=== PATIENT | female | born 1990 | race Caucasian/White ===

== ENCOUNTER 2017-08-10 14:43 | Emergency (ER) | payer OTHER, SELFPAY ==
[2017-08-10 14:48] VITALS: BP 107/42; PULSE 81; RESP 18; TEMP 36.2; O2SAT 94; BMI 38.6
--- NOTE | 2017-08-10 14:57 | XR_ITS ---
XR ankle RT min 3V HISTORY: ITS.REASON: pain right ankle ORDERING PHYSICIAN: Ever Sifuentes MD PATIENT AGE: 26 years COMPARISON: None FINDINGS: No fracture or dislocation. No lytic or blastic change. There is normal mineralization.. The joint spaces are well-preserved. No significant degenerative/arthritic changes. No erosive changes evident. IMPRESSION: Negative ankle, no acute finding
--- NOTE | 2017-08-10 15:48 | HMH.EDGENADL ---
ED Disposition Clinical Impression: Right ankle sprain Qualifiers: Encounter type: initial encounter Involved ligament of ankle: other ligament Qualified Code(s): S93.491A - Sprain of other ligament of right ankle, initial encounter Disposition: Home, Self-Care Condition on Discharge: Good Instructions: DI for Ankle Sprain Additional Instructions: Please keep right ankle wrapped with an Paco bandage, elevated, apply ice pack locally, alternate Motrin with Tylenol for pain control. If not better follow-up with PCP in 4-5 days. Referrals: Butch Gonzalez [Primary Care Provider] - Time of Disposition: 15:51 - Critical Care Critical Care Time: No Attestation: On 08/10/17, the high probability of a clinically significant, sudden or life threatening deterioration of the following system(s) required my full and direct attention, intervention and personal management. The time I documented below is in addition to time spent performing reported procedures but includes the following listed in this critical care notation. Medical Decision Making - Medical Records Medical records reviewed: Yes: I reviewed the patient's medical records. - Darrick Inquiry Pt receiving controlled substance: No Vital Signs: 08/10/17 14:48 Temperature 97.2 F L Temperature Source Temporal Artery Scan Pulse Rate [Right Brachial] 81 Respiratory Rate 18 Blood Pressure [Right Arm] 107/42 Blood Pressure Mean [Right Arm] 63 Blood Pressure Source [Right Arm] Automatic Cuff Blood Pressure Position [Right Arm] Sitting 02 Sat by Pulse Oximetry 94 L Oxygen Delivery Method Room Air Orders (Tests/Meds): ED MEDICATIONS Discontinued Medications Generic Name Dose Route Start Last Admin Trade Name Freq PRN Reason Stop Dose Admin Ibuprofen 600 mg 08/10/17 15:52 08/10/17 15:58 Motrin 600mg Tablet PO 08/10/17 15:53 600 mg ONCE ONE Administration - Radiology Data #1 Image(s): Ankle (rigth) Image Reviewed: Yes I reviewed the patient's radiology results, Yes I reviewed the patient's radiology image, Yes I have reviewed radiologist's interpretation Preliminary Findings: Normal/NAD - Reevaluation(s) Time: 15:45 Reevaluation #1: Upon evaluation patient appears medically stable, in no acute distress. Advise patient of results obtained, need to keep limb elevated, ice, wrap with elastic bandage. General Adult HPI - General Chief complaint: PAIN Stated complaint: Ao [id number] Right foot pain Time Seen by Provider: 08/10/17 15:01 Mode of Arrival: Family Vehicle Source of Information: Patient Limitations: No Limitations Description of Symptoms (Recalled from ER Triage Doc. by RN): c/o right ankle pain, Twisted while cleaning at approx 30 minutes to go - History of Present Illness complaint: rigth ankle pain Onset (ago): hour(s) (1/2) Location: right, lower extremity Radiation: non-radiation Severity: moderate Severity scale (1-10): 4 Quality: aching Consistency: intermittent Relieving factors: rest Exacerbating factors: movement Associated symptoms: denies other symptoms Treatments prior to arrival: none - Related Data Allergies Allergy/AdvReac Type Severity Reaction Status Date / Time Penicillins [PENICILLINS] Allergy Severe I-HIVES Verified 08/10/17 14:55 [facility] History I have reviewed the patient's past medical history: Yes Medical History: Denies:: Cancer, Diabetes Mellitus Type 1, Diabetes Mellitus Type 2, MRSA Amputation: No Fractures: No - Social History Smoking Status: Current every day smoker Tobacco Type: cigarettes Alcohol Intake: never - Psychiatric History Expresses thoughts of harming self/others: None Suicide Plan Description: No Plan ROS Obtained: Yes All systems reviewed & no additional complaints, Yes Systems reviewed as appropriate & no additional complaints - Musculoskeletal Musculoskeletal: Reports system reviewed and no additional complaints, except as docu, Reports as pe
[2017-08-10 16:08] VITALS: BP 122/64; PULSE 79; RESP 16; TEMP 36.9; O2SAT 99
== END 2017-08-10 16:11 | disposition home or self-care (01) ==
PROVIDERS: Emergency Provider Emergency Medicine; Family Provider Family Medicine; PCP Internal Medicine Cardiovascular Disease
DX: S93.491A Sprain of other ligament of right ankle, initial encounter (principal); F17.210 Nicotine dependence, cigarettes, uncomplicated; Z88.0 Allergy status to penicillin; X50.1XXA Overexertion from prolonged static or awkward postures, initial encounter
CPT/HCPCS: 73610; 99283

== ENCOUNTER 2019-11-09 20:37 | Emergency (ER) | payer OTHER, SELFPAY ==
[2019-11-09 20:53] VITALS: BP 147/79; PULSE 105; RESP 20; TEMP 36.9; O2SAT 98; BMI 40.7
[2019-11-09 20:53] LABS: UTC Strep Screen (Rapid) Positive (Negative)
--- NOTE | 2019-11-09 20:56 | HMH.EDUTC ---
[facility] [place] Disposition Clinical Impression: Strep throat Disposition: Home, Self-Care Condition on Discharge: Good Instructions: Strep Throat, DI for Strep Throat Additional Instructions: *Monitor Temp, Over the counter Motrin or Tylenol as directed/as needed Tylenol every 4 hours and Motrin every 6 hours (as long as your family doctor has told you that you can take it) for fever or pain. and straight to ER if unable to lower temp less than 101.0 after medication given *Warm salt water gargles may help to soothe the throat *Throat Lozenges *Warm fluids like tea with honey may help to soothe the throat *Sleep elevated *Humidifier/Vaporizer Continue taking Azithromycin as prescribed *If you did not take Penicillin shot or was unable to, start taking antibiotic immediately and make sure that you take it for the FULL length of time although you should start to feel better in 24-48 hours *change toothbrush and toothpaste 24-48 hours after starting to take antibiotics so you do not reinfect yourself Monitor Temp. Tylenol and/or Ibuprofen as needed. ER if fever is no less than 101 despite alternating Tylenol and Ibuprofen * Encourage fluids, water, Gatorade, powerade, pedialyte if infant/toddler/or child *Cold fluids, popsicles and ice cream may feel good on his throat Follow up IMMEDIATELY for new or worsening symptoms or no Noticeable improvement over the next 48-72 hours. 911 for difficulty breathing or swallowing Referrals: Butch Montano [Primary Care Provider] - As needed Time of Disposition: 21:20 Medical Decision Making - Darrick Inquiry Pt receiving controlled substance: No Darrick was queried for this patient: No Vital Signs: 11/09/19 20:53 11/09/19 21:12 Temperature 98.4 F 98.4 F Temperature Source Oral Pulse Rate 105 H Pulse Rate [Left Brachial] 105 H Respiratory Rate 20 20 Blood Pressure 147/79 H Blood Pressure [Left Arm] 147/79 H Blood Pressure Mean [Left Arm] 101 Blood Pressure Source [Left Arm] Automatic Cuff Blood Pressure Position [Left Arm] Sitting 02 Sat by Pulse Oximetry 98 Oxygen Delivery Method Room Air - Lab Data Lab results reviewed: Yes: I reviewed the patient's lab results. Lab Results 11/09/19 20:45: Strep Scn Rapid [facility] Positive A Orders (Tests/Meds): ED MEDICATIONS Discontinued Medications Generic Name Dose Route Start Last Admin Trade Name Lalita PRN Reason Stop Dose Admin Methylprednisolone Sodium Succinate 125 mg 11/09/19 20:58 11/09/19 21:10 Solu-Medrol 125mg/2ml Vial IM 11/09/19 20:59 125 mg ONCE ONE Administration [facility] [place] HPI - General Stated complaint: SORE THROAT Time Seen by Provider: 11/09/19 20:56 Mode of Arrival: Ambulatory Source of Information: Patient Limitations: No Limitations Description of Symptoms (Recalled from Triage Doc. by RN): PATIENT C/O SORE THROAT. CURRENTLY ON Z-PACK HEENT Symptoms (Recalled from RN notes): Yes Resp Symptoms (Recalled from RN notes): No Skin Symptoms (Recalled from RN notes): No MS Symptoms (Recalled from RN notes): No Functional Status (Recalled from RN notes): WNL - History of Present Illness Provider Complaint: Patient states that she seen her PCP through telehealth and was dx with strep throat and was prescribed zpack yesterday states that she has been taking it and her throat isnt feeling any better States that tonight it feels like it is swollen worse so she came in to get checked - Related Data Home Medications Medication Instructions Recorded Confirmed Albuterol Sulfate [Ventolin HFA 2 puffs IH DAILY 02/07/18 02/11/19 Inhaler] Budesonide [Pulmicort Flexhaler] 2 puffs IH DAILY 02/07/18 02/11/19 Cetirizine HCl 10 mg PO DAILY 02/07/18 02/11/19 Ibuprofen [Ibuprofen 800mg 800 mg PO TID 02/07/18 02/11/19 Tablet] Omeprazole [Omeprazole 40mg 40 mg PO DAILY 02/07/18 02/11/19 Capsule] Dicyclomine HCl [Bentyl 10mg 10 mg PO QID 04/01/18 02/11/19 capsule] Jean
[2019-11-09 21:12] VITALS: BP 147/79; PULSE 105; RESP 20; TEMP 36.9; O2SAT 98
== END 2019-11-09 21:24 | disposition home or self-care (01) ==
PROVIDERS: Emergency Provider Nurse Practitioner; PCP Family Medicine
DX: J02.0 Streptococcal pharyngitis (principal); F17.210 Nicotine dependence, cigarettes, uncomplicated; Z88.0 Allergy status to penicillin
CPT/HCPCS: 87880; 96372; 99202

== ENCOUNTER 2021-11-03 18:23 | Emergency (ER) | payer OTHER, SELFPAY ==
[2021-11-03 18:27] VITALS: BP 145/91; PULSE 125; RESP 18; TEMP 36.7; O2SAT 95; BMI 40.5
--- NOTE | 2021-11-03 18:42 | PC.NURSE ---
Pt states that she has had a tubal.
--- NOTE | 2021-11-03 18:43 | CT_ITS ---
PROCEDURE INFORMATION: Exam: CT Head Without Contrast Exam date and time: 11/03/2021 6:50 PM Age: 31 years old Clinical indication: Pain; Additional info: Tree branch fell on head TECHNIQUE: Imaging protocol: Computed tomography of the head without contrast. Radiation optimization: All CT scans at this facility use at least one of these dose optimization techniques: automated exposure control; mA and/or kV adjustment per patient size (includes targeted exams where dose is matched to clinical indication); or iterative reconstruction. COMPARISON: CT CERVICAL SPINE WO CON 11/03/2021 6:48 PM FINDINGS: Brain: Normal. Cerebral ventricles: No ventriculomegaly. Paranasal sinuses: Minimal ethmoid sinus disease. Mastoid air cells: Normal as visualized. Bones/joints: Normal. Soft tissues: Unremarkable. IMPRESSION: No acute intracranial abnormality.
--- NOTE | 2021-11-03 18:43 | CT_ITS ---
PROCEDURE INFORMATION: Exam: CT Cervical Spine Without Contrast Exam date and time: 11/03/2021 6:48 PM Age: 31 years old Clinical indication: Neck pain; Additional info: Tree branch fell on head TECHNIQUE: Imaging protocol: Computed tomography of the cervical spine without contrast. Radiation optimization: All CT scans at this facility use at least one of these dose optimization techniques: automated exposure control; mA and/or kV adjustment per patient size (includes targeted exams where dose is matched to clinical indication); or iterative reconstruction. COMPARISON: No relevant prior studies available. FINDINGS: Bones/joints: No acute fracture. Normal alignment. Discs/Spinal canal/Neural foramina: No significant disc protrusion. No severe spinal canal stenosis. No significant neural foraminal narrowing. Lungs: Lung apices are normal. Soft tissues: Normal. IMPRESSION: No acute findings.
--- NOTE | 2021-11-03 18:43 | CT_ITS ---
PROCEDURE INFORMATION: Exam: CT Thoracic Spine Without Contrast Exam date and time: 11/03/2021 6:53 PM Age: 31 years old Clinical indication: Pain in thoracic spine; Additional info: Tree branch fell on head TECHNIQUE: Imaging protocol: Computed tomography of the thoracic spine without contrast. Radiation optimization: All CT scans at this facility use at least one of these dose optimization techniques: automated exposure control; mA and/or kV adjustment per patient size (includes targeted exams where dose is matched to clinical indication); or iterative reconstruction. COMPARISON: CT CERVICAL SPINE WO CON 11/03/2021 6:48 PM FINDINGS: Bones/joints: Minimal height loss at T11 which appears stable from prior examination. No acute fracture or dislocation. Discs/Spinal canal/Neural foramina: No significant disc protrusion. No severe spinal canal stenosis. No significant neural foraminal narrowing. Soft tissues: Unremarkable. IMPRESSION: No acute findings.
--- NOTE | 2021-11-03 18:44 | PC.NURSE ---
Notified rad of CT orders
--- NOTE | 2021-11-03 18:44 | PC.NURSE ---
C-Collar being placed on pt at this time.
--- NOTE | 2021-11-03 18:47 | PC.NURSE ---
Pt to rad at this time.
--- NOTE | 2021-11-03 19:17 | HMH.EDGENADL ---
ED Disposition Clinical Impression: Head contusion Qualifiers: Encounter type: initial encounter Contusion of head detail: scalp Qualified Code(s): S00.03XA - Contusion of scalp, initial encounter Neck contusion Qualifiers: Encounter type: initial encounter Qualified Code(s): S10.93XA - Contusion of unspecified part of neck, initial encounter Back contusion Qualifiers: Encounter type: initial encounter Laterality: unspecified laterality Qualified Code(s): S20.229A - Contusion of unspecified back wall of thorax, initial encounter Disposition: Home, Self-Care Condition on Discharge: Good Instructions: DI for Closed Head Injury Additional Instructions: Ibuprofen or Tylenol as needed for pain. Ice 20 minutes 3-4 times a day as needed for pain and swelling. Additional instructions for HEAD INJURY: See your physician if not improved by next week. Return immediately if severe headache, vomiting, problems with vision or speech, numbness or weakness of the extremities, or severe neck pain. Referrals: Provider,Referral, MD [Primary Care Provider] - - Critical Care Critical Care Time: No Attestation: On , the high probability of a clinically significant, sudden or life threatening deterioration of the following system(s) required my full and direct attention, intervention and personal management. The time I documented below is in addition to time spent performing reported procedures but includes the following listed in this critical care notation. Medical Decision Making - Darrick Inquiry Pt receiving controlled substance: No Vital Signs: 11/03/21 18:27 Temperature 98.1 F Temperature Source Oral Pulse Rate [Right Radial] 125 H Respiratory Rate 18 Blood Pressure [Right Arm] 145/91 H Blood Pressure Mean [Right Arm] 109 Blood Pressure Source [Right Arm] Automatic Cuff Blood Pressure Position [Right Arm] Sitting 02 Sat by Pulse Oximetry 95 Oxygen Delivery Method Room Air Orders (Tests/Meds): ORDERS Category Date Time Status CT thoracic spine wo con Stat Cat Scan 11/03/21 18:43 Taken - CT Data CT Scan: Head, C-Spine, T-Spine Time Received: 20:[address] Reviewed: Yes: I have viewed the radiologist's interpretation Findings Narrative: PROCEDURE INFORMATION: Exam: CT Head Without Contrast Exam date and time: 11/03/2021 6:50 PM Age: 31 years old Clinical indication: Pain; Additional info: Tree branch fell on head TECHNIQUE: Imaging protocol: Computed tomography of the head without contrast. Radiation optimization: All CT scans at this facility use at least one of these dose optimization techniques: automated exposure control; mA and/or kV adjustment per patient size (includes targeted exams where dose is matched to clinical indication); or iterative reconstruction. COMPARISON: CT CERVICAL SPINE WO CON 11/03/2021 6:48 PM FINDINGS: Brain: Normal. Cerebral ventricles: No ventriculomegaly. Paranasal sinuses: Minimal ethmoid sinus disease. Mastoid air cells: Normal as visualized. Bones/joints: Normal. Soft tissues: Unremarkable. IMPRESSION: No acute intracranial abnormality. EDURE INFORMATION: Exam: CT Cervical Spine Without Contrast Exam date and time: 11/03/2021 6:48 PM Age: 31 years old Clinical indication: Neck pain; Additional info: Tree branch fell on head TECHNIQUE: Imaging protocol: Computed tomography of the cervical spine without contrast. Radiation optimization: All CT scans at this facility use at least one of these dose optimization techniques: automated exposure control; mA and/or kV adjustment per patient size (includes targeted exams where dose is matched to clinical indication); or iterative reconstruction. COMPARISON: No relevant prior studies available. FINDINGS: Bones/joints: No acute fracture. Normal alignment. Discs/Spinal canal/Neural
--- NOTE | 2021-11-03 19:42 | PC.NURSE ---
rounded on pt at this time, she was sitting up on side of bed. Updated her on POC. Pt had no other needs at this time
[2021-11-03 20:36] VITALS: BP 127/87; PULSE 78; RESP 16; TEMP 36.8; O2SAT 98
== END 2021-11-03 20:37 | disposition home or self-care (01) ==
PROVIDERS: Emergency Provider Emergency Medicine
DX: S00.03XA Contusion of scalp, initial encounter (principal); S10.93XA Contusion of unspecified part of neck, initial encounter; S20.229A Contusion of unspecified back wall of thorax, initial encounter; W20.8XXA Other cause of strike by thrown, projected or falling object, initial encounter
CPT/HCPCS: 70450; 72125; 72128; 99285

== ENCOUNTER 2022-03-02 22:29 | Emergency (ER) | payer OTHER, SELFPAY ==
[2022-03-02 22:31] VITALS: BP 146/89; PULSE 127; RESP 16; TEMP 36.8; O2SAT 99; BMI 36.3
[2022-03-02 22:46] LABS: Microscopic, Urine URINE MICROSCOPIC (MICROSCOPIC)
--- NOTE | 2022-03-02 22:50 | HMH.EDABDPAI ---
Discharge Plan Disposition Patient Disposition: Home, Self-Care Prescriptions Prescriptions: New levofloxacin 500 mg tablet 500 mg PO DAILY Qty: 7 0RF No Action dicyclomine 10 MG capsule 10 mg PO QID cetirizine 10 MG tablet 10 mg PO DAILY Label Comments: TAKE ONE TABLET BY MOUTH DAILY ibuprofen 800 MG tablet 800 mg PO TID Label Comments: TAKE 1 TABLET BY MOUTH EVERY 8 HOURS NEEDED FOR PAIN omeprazole 40 MG capsule,delayed release(DR/EC) 40 mg PO DAILY Label Comments: TAKE 1 CAPSULE BY MOUTH ONCE DAILY albuterol sulfate 18 GM HFA aerosol inhaler 2 puffs IH DAILY Label Comments: INHALE 2 PUFFS INTO THE LUNGS EVERY 6 HOURS NEEDED FOR WHEEZING budesonide 180 MCG aerosol powdr breath activated 2 puffs IH DAILY Label Comments: INHALE 1 PUFF INTO THE LUNGS 2 TIMES DAILY Referrals Follow up/Referrals: Butch Gonzalez [Primary Care Provider] - See instructions Clinical Impressions Clinical Impression: UTI (urinary tract infection), SIRS (systemic inflammatory response syndrome), Dermatitis Instructions Patient Instructions: DI for Urinary Tract Infection (UTI) Discharge ED Provider: Butch Gaines Abdominal Pain HPI General Chief Complaint: Abdominal Pain Stated Complaint: left side pain/buising, no accident Time Seen by Provider: 03/02/22 22:50 Mode of Arrival: Ambulatory Source of Information: Patient and Medical Record Limitations: No Limitations Description of Symptoms (Recalled from ER Triage Doc. by RN): pt c/o LLQ pain and pressure while urinating, also pt has rash to her lt groin area that all started yesterday. History of Present Illness HPI narrative: lt lower abd pain with pain with urinating and no fever or trauma - has rash to abd also with no fever or known tick bite complaint: abdominal pain Onset (ago): day(s) Consistency: intermittent Location: LLQ Severity: moderate Associated symptoms: denies other symptoms Related Data Home Medications Medication Instructions Recorded Confirmed albuterol sulfate 90 mcg/actuation 2 puffs IH DAILY COPD 02/07/18 02/11/19 aerosol inhaler budesonide 180 mcg/actuation 2 puffs IH DAILY COPD 02/07/18 02/11/19 breath activated powder inhaler cetirizine 10 mg tablet 10 mg PO DAILY allergy symptoms 02/07/18 02/11/19 ibuprofen 800 mg tablet 800 mg PO TID Pain 02/07/18 02/11/19 omeprazole 40 mg capsule,delayed 40 mg PO DAILY GERD 02/07/18 02/11/19 release dicyclomine 10 mg capsule 10 mg PO QID gut 04/01/18 02/11/19 Previous Rx's Medication Instructions Recorded levofloxacin 500 mg tablet 500 mg PO DAILY #7 tabs 03/03/22 Allergies Allergy/AdvReac Type Severity Reaction Status Date / Time Penicillins [PENICILLINS] Allergy Severe I-HIVES Verified 11/06/18 17:31 PFSH PFSH Social History Smoking Status: Never smoker second hand exposure: Yes alcohol intake: never substance use type: denies use current occupational status: other Travel in the last 8 weeks: None household members: family housing: house caffeine: Yes ROS Obtained: Yes All systems reviewed & no additional complaints except as documented Constitutional Constitutional: Denies fever(s) ENT Ears, Nose, Mouth, and Throat: Denies epistaxis Cardiovascular Cardiovascular: Denies dyspnea Respiratory Respiratory: Denies dyspnea Gastrointestinal Gastrointestingal: Reports as per HPI; Denies melena Genitourinary Female Genitourinary: Reports as per HPI, Denies hematuria and Reports urinary frequency Physical Exam General General appearance: alert Head Head exam: normocephalic Eye Eye exam: Present PERRL and EOMI ENT ENT exam: Present mucous membranes moist Neck Neck exam: Present trachea midline Respiratory Respiratory exam: Absent respiratory distress Cardiovascular Cardiovascular exam: Present regular rate Abdominal Exam Abdominal exam: Present soft and tendern
[2022-03-02 22:57] LABS: Appearance,Urine CLOUDY (Clear); Bilirubin,Urine Negative (Negative); Blood, Urine 3+ (Negative); Color,Urine YELLOW (Yellow); Glucose,Urine (UA) Negative (Negative); Ketones,Urine Negative (Negative); Leukocyte Esterase,Urine 2+ (Negative); Nitrate,Urine Negative (Negative); Protein,Urine TRACE (Negative); Urobilinogen,Urine 0.2 EU/dl (0.2)
[2022-03-02 23:00] LABS: Urine Pregnancy, HCG Qual. Negative (Negative)
[2022-03-02 23:01] VITALS: BP 137/79; PULSE 112; O2SAT 99
[2022-03-02 23:22] LABS: Chloride 99 mmol/L (98-107); Potassium 4.1 mmoL/L (3.5-5.1); Sodium 140 mmol/L (136-145)
[2022-03-02 23:22] LABS: Bacteria,Urine 1+ /lpf; RBC,Urine TNTC #/hpf (0-3); Squamous Epithelial Cell,Urine Occasional #/hpf (0-5); WBC,Urine TNTC #/hpf (0-3)
[2022-03-02 23:24] LABS: Amylase 70 U/L (30-110); Blood Urea Nitrogen 10 mg/dl (7-17); Creatinine Clearance Estimated 129 mL/min (50-200); Estimated Glomerular Filt Rate 85 ml/min (>60); GFR (African American) 103 ML/MIN (>60)
[2022-03-02 23:25] LABS: Alanine Aminotransferase 30 U/L (12-78); Albumin Level 4.6 g/dl (3.5-5.0); Albumin/Globulin Ratio 1.4 (1.1-1.8); Alkaline Phosphatase 97 U/L (38-126); Anion Gap 17.1 mEq/L (5-15); Aspartate Amino Transferase 28 U/L (14-36); Basophils # 0.1 K/mm3 (0-0.2); Bilirubin,Total 0.2 mg/dl (0.2-1.3); Calcium 9.5 mg/dl (8.4-10.2); Carbon Dioxide 28 mmol/L (22.0-30.0); Eosinophils # 0.7 K/mm3 (0.0-0.4); Eosinophils % 5.3 % (0.1-12.0); Globulin 3.4 g/dL (1.3-3.2); Glucose 119 mg/dl (74-100); Hematocrit 44.4 % (37.0-47.0); Hemoglobin 14.5 g/dL (12.2-16.2); Lipase 75 U/L (23-300); Lymphocytes # 2.2 K/mm3 (0.7-4.5); Lymphocytes % 17.2 % (10-50); Mean Corpuscular HGB Conc 32.7 g/dL (31.8-35.4); Mean Corpuscular Hemoglobin 28.5 pg (27.0-31.2); Mean Corpuscular Volume 87.3 fl (81-99); Mean Platelet Volume 6.8 fl (7.4-10.4); Monocytes # 0.6 K/mm3 (0.1-1.0); Monocytes % 4.2 % (1.7-9.3); Neutrophils # 9.4 K/mm3 (1.8-7.8); Neutrophils % 72.3 % (37.0-80.0); Platelet Count 422 K/mm3 (142-424); Red Blood Count 5.09 M/mm3 (4.20-5.40); Red Cell Distribution Width 12.8 % (11.5-17.5); White Blood Count 13.1 K/mm3 (4.8-10.8)
[2022-03-02 23:30] VITALS: BP 124/76; PULSE 107; O2SAT 98
--- NOTE | 2022-03-02 23:45 | CT_ITS ---
PROCEDURE INFORMATION: Exam: CT Abdomen And Pelvis With Contrast Exam date and time: 03/02/2022 11:49 PM Age: 31 years old Clinical indication: Abdominal pain; Localized; Left lower quadrant (llq); Additional info: Abd pain TECHNIQUE: Imaging protocol: Computed tomography of the abdomen and pelvis with contrast. Radiation optimization: All CT scans at this facility use at least one of these dose optimization techniques: automated exposure control; mA and/or kV adjustment per patient size (includes targeted exams where dose is matched to clinical indication); or iterative reconstruction. Contrast material: ISOVUE; Contrast volume: 75 ml; Contrast route: IV; COMPARISON: ABDPELW CT abdomen pelvis w con 02/07/2018 11:39 PM FINDINGS: Liver: Normal. No mass. Gallbladder and bile ducts: Normal. No calcified stones. No ductal dilation. Pancreas: Normal. No ductal dilation. Spleen: Normal. No splenomegaly. Adrenal glands: Normal. No mass. Kidneys and ureters: Normal. No hydronephrosis. Stomach and bowel: Unremarkable. No obstruction. No mucosal thickening. Appendix: Unremarkable appendix. Intraperitoneal space: Unremarkable. No free air. No significant fluid collection. Vasculature: Unremarkable. No abdominal aortic aneurysm. Lymph nodes: Unremarkable. No enlarged lymph nodes. Urinary bladder: Unremarkable as visualized. Reproductive: Bilateral tubal ligation clips. Bones/joints: Unremarkable. No acute fracture. Soft tissues: Tiny fat containing umbilical hernia. Other findings: Stigmata of old granulomatous disease. IMPRESSION: No acute findings.
[2022-03-03 01:09] VITALS: BP 124/76; PULSE 98; RESP 18; TEMP 36.6; O2SAT 99
== END 2022-03-03 01:24 | disposition home or self-care (01) ==
PROVIDERS: Emergency Provider Emergency Medicine; PCP Internal Medicine Cardiovascular Disease
DX: N39.0 Urinary tract infection, site not specified (principal)
CPT/HCPCS: 74177; 80053; 81001; 81025; 82150; 83690; 85025; 87086; 87088; 87186; 96365; 99284; J0696; Q9967

== ENCOUNTER 2022-04-18 04:09 | Emergency (ER) | payer OTHER, SELFPAY ==
--- NOTE | 2022-04-18 04:07 | ECG_ITS ---
APPROVED REPORT Exam: Resting ECG HR:84 bpm ECG Measurements Heart Rate 84 AXES TN 128 P 63 QRSd 95 QRS 84 QT 385 T 61 QTc 426 Conclusion SINUS RHYTHM NORMAL ECG UNCONFIRMED REPORT Electronically signed by : Kyrie Fleimng MD 04/18/2022 19:58:47
[2022-04-18 04:09] VITALS: BP 120/72; PULSE 87; RESP 20; TEMP 36.5; O2SAT 99; BMI 37.6
[2022-04-18 04:10] VITALS: BMI 37.6
--- NOTE | 2022-04-18 04:11 | CT_ITS ---
PROCEDURE INFORMATION: Exam: CTA Chest With Contrast Exam date and time: 04/18/2022 4:44 AM Age: 31 years old Clinical indication: Pain; Right-sided; Additional info: Cp TECHNIQUE: Imaging protocol: Computed tomographic angiography of the chest with contrast. 3D rendering (Not supervised by radiologist): MIP and/or 3D reconstructed images were created by the technologist. Radiation optimization: All CT scans at this facility use at least one of these dose optimization techniques: automated exposure control; mA and/or kV adjustment per patient size (includes targeted exams where dose is matched to clinical indication); or iterative reconstruction. Contrast material: ISOVUE 370; Contrast volume: 70 ml; Contrast route: INTRAVENOUS (IV); COMPARISON: CR XR CHEST 2V 04/18/2022 4:30 AM FINDINGS: Pulmonary arteries: Normal. No pulmonary emboli. Aorta: Unremarkable. No aortic aneurysm. No aortic dissection. Lungs: Multiple pulmonary granuloma noted. Pleural spaces: Unremarkable. No pneumothorax. No pleural effusion. Heart: No coronary artery calcium is present. Lymph nodes: Some small benign calcified lymph nodes present. Bones/joints: Unremarkable. No acute fracture. Soft tissues: Unremarkable. IMPRESSION: 1. No evidence of pulmonary embolism or other acute process. 2. Calcified mediastinal lymph nodes and parenchymal granulomas consistent with prior granulomatous disease.
--- NOTE | 2022-04-18 04:11 | XR_ITS ---
PROCEDURE INFORMATION: Exam: XR Chest Exam date and time: 04/18/2022 4:30 AM Age: 31 years old Clinical indication: Pain; Right-sided; Additional info: Cp TECHNIQUE: Imaging protocol: Radiologic exam of the chest. Views: 2 views. COMPARISON: CR CXR2V XR chest 2V 04/01/2018 5:03 AM FINDINGS: Lungs: Unremarkable. No consolidation. Pleural spaces: Unremarkable. No pleural effusion. No pneumothorax. Heart/Mediastinum: Unremarkable. No cardiomegaly. Bones/joints: Unremarkable. IMPRESSION: No acute findings.
[2022-04-18 04:21] LABS: Coronavirus 19, PCR Not Detected (NotDetected); Influenza A, PCR Not Detected (NotDetected); Influenza B, PCR Not Detected (NotDetected)
[2022-04-18 04:22] LABS: Basophils # 0.1 K/mm3 (0-0.2); Basophils % 1.5 % (0.1-2.0); Eosinophils # 0.6 K/mm3 (0.0-0.4); Eosinophils % 6.4 % (0.1-12.0); Hematocrit 43.8 % (37.0-47.0); Hemoglobin 14.2 g/dL (12.2-16.2); Lymphocytes # 3.2 K/mm3 (0.7-4.5); Lymphocytes % 36.1 % (10-50); Mean Corpuscular HGB Conc 32.4 g/dL (31.8-35.4); Mean Corpuscular Hemoglobin 28.7 pg (27.0-31.2); Mean Corpuscular Volume 88.6 fl (81-99); Mean Platelet Volume 7.3 fl (7.4-10.4); Monocytes # 0.5 K/mm3 (0.1-1.0); Monocytes % 5.5 % (1.7-9.3); Neutrophils # 4.5 K/mm3 (1.8-7.8); Neutrophils % 50.4 % (37.0-80.0); Platelet Count 471 K/mm3 (142-424); Red Blood Count 4.94 M/mm3 (4.20-5.40); Red Cell Distribution Width 12.9 % (11.5-17.5)
[2022-04-18 04:33] LABS: Alanine Aminotransferase 29 U/L (12-78); Albumin Level 4.4 g/dl (3.5-5.0); Albumin/Globulin Ratio 1.5 (1.1-1.8); Alkaline Phosphatase 102 U/L (38-126); Anion Gap 11.7 mEq/L (5-15); Aspartate Amino Transferase 28 U/L (14-36); Bilirubin,Total 0.2 mg/dl (0.2-1.3); Blood Urea Nitrogen 11 mg/dl (7-17); Calcium 9.8 mg/dl (8.4-10.2); Carbon Dioxide 27 mmol/L (22.0-30.0); Chloride 106 mmol/L (98-107); Creatinine Clearance Estimated 119 mL/min (50-200); Estimated Glomerular Filt Rate 74 ml/min (>60); GFR (African American) 90 ML/MIN (>60); Glucose 99 mg/dl (74-100); Potassium 3.7 mmoL/L (3.5-5.1); Sodium 141 mmol/L (136-145); Total Protein,Serum 7.4 g/dl (6.3-8.2)
[2022-04-18 04:50] LABS: Troponin I < 0.01 ng/ml (0.00-0.034)
--- NOTE | 2022-04-18 06:39 | [facility].EDCP ---
Discharge Plan Disposition Patient Disposition: Home, Self-Care Chief Complaint: Chest Pain Prescriptions Prescriptions: No Action dicyclomine 10 MG capsule 10 mg PO QID cetirizine 10 MG tablet 10 mg PO DAILY Label Comments: TAKE ONE TABLET BY MOUTH DAILY ibuprofen 800 MG tablet 800 mg PO TID Label Comments: TAKE 1 TABLET BY MOUTH EVERY 8 HOURS NEEDED FOR PAIN omeprazole 40 MG capsule,delayed release(DR/EC) 40 mg PO DAILY Label Comments: TAKE 1 CAPSULE BY MOUTH ONCE DAILY albuterol sulfate 18 GM HFA aerosol inhaler 2 puffs IH DAILY Label Comments: INHALE 2 PUFFS INTO THE LUNGS EVERY 6 HOURS NEEDED FOR WHEEZING budesonide 180 MCG aerosol powdr breath activated 2 puffs IH DAILY Label Comments: INHALE 1 PUFF INTO THE LUNGS 2 TIMES DAILY levofloxacin 500 mg tablet 500 mg PO DAILY Qty: 7 0RF Referrals Follow up/Referrals: Butch Montano MD [Primary Care Provider] - See instructions Clinical Impressions Clinical Impression: Atypical chest pain Instructions Patient Instructions: DI for Atypical Chest Pain Discharge ED Provider: Butch Gaines Chest Pain HPI General Chief Complaint: Chest Pain Stated Complaint: chest pain Time Seen by Provider: 04/18/22 04:30 Mode of Arrival: Family Vehicle Source of Information: Patient and Medical Record Limitations: No Limitations Description of Symptoms (Recalled from ER Triage Doc. by RN): Pt c/o midsternal chest pain that radiates to R shoulder. She also reports nausea, difficulty raising R arm, and pain on deep inspiration. She denies any HEMAL. Pt states she had a R femur fx repair at the end of February and is supposed to take Aspirin 325mg EC PO daily foir VTE proiphylactic however she has been forgeetting to take it regularly . States last dose was about 1 wk ago. No redness, swelling, or heat to RUE or shoulder area. radial pulse 3+, [employer] is brisk. History of Present Illness HPI narrative: acute rt sided pleuritic chest pain over the last day no fever - hx of surg in february = MD complaint: chest pain indicative of cardiac Onset (ago): hour(s) Duration: intermittent Activity at onset: during rest Pain location: right chest Severity: moderate Quality: sharp Pain radiation: none Exacerbating factors: inspiration Context: recent surgery Risk Factors for CAD: Family Hx of CAD Treatments prior to or on arrival for Cardiac Chest Pain: none LOLIS Score for Non-Stemi Age of Patient: <30 years old Heart Rate: 70-89 bpm Systolic Blood Pressure: 120-139 mmhg Serum Creatinine: 0.80-1.19 mg/dl CHF [place] Class: I-No CHF Other Risk Factors: None Non-Stemi Risk Score: 50 Related Data On Oral Contraceptives: No Home Medications Medication Instructions Recorded Confirmed albuterol sulfate 90 mcg/actuation 2 puffs IH DAILY COPD 02/07/18 02/11/19 aerosol inhaler budesonide 180 mcg/actuation 2 puffs IH DAILY COPD 02/07/18 02/11/19 breath activated powder inhaler cetirizine 10 mg tablet 10 mg PO DAILY allergy symptoms 02/07/18 02/11/19 ibuprofen 800 mg tablet 800 mg PO TID Pain 02/07/18 02/11/19 omeprazole 40 mg capsule,delayed 40 mg PO DAILY GERD 02/07/18 02/11/19 release dicyclomine 10 mg capsule 10 mg PO QID gut 04/01/18 02/11/19 Previous Rx's Medication Instructions Recorded levofloxacin 500 mg tablet 500 mg PO DAILY #7 tabs 03/03/22 Allergies Allergy/AdvReac Type Severity Reaction Status Date / Time Penicillins [PENICILLINS] Allergy Severe I-HIVES Verified 11/06/18 17:31 [facility] Disclaimer: The information contained in this section may have been updated after the patient was seen, as this information can be updated by other users. Social History Smoking Status: Current every day smoker tobacco type: cigarettes packs per day: 1 second hand exposure: Yes alcohol intake: never substance use type: denies use current occupational status: other Travel
[2022-04-18 06:46] VITALS: PULSE 80
[2022-04-18 07:05] VITALS: BP 122/74; PULSE 81; RESP 18; TEMP 36.5; O2SAT 100
[2022-04-18 07:13] LABS: Urine Pregnancy, HCG Qual. Negative (Negative)
== END 2022-04-18 07:05 | disposition home or self-care (01) ==
PROVIDERS: Emergency Provider Emergency Medicine; PCP Family Medicine
DX: R07.89 Other chest pain (principal); Z72.0 Tobacco use
CPT/HCPCS: 71046; 71275; 80053; 81025; 84484; 85025; 93005; 96374; 96375; 99285; C9803; Q9967; U0003; U0005

== ENCOUNTER 2023-12-25 15:31 | Emergency (ER) | payer OTHER, SELFPAY ==
[2023-12-25 15:32] VITALS: BP 127/88; PULSE 94; RESP 19; TEMP 36.6; O2SAT 97; BMI 21.6
--- NOTE | 2023-12-25 15:37 | ED_ITS ---
<Statement entered by Camila Gandhi DO - 12/25/23 23:01> I was consulted by the MEDARDO, and we discussed the complexity of the problems being addressed. I approved the treatment and management plan for this patient's care in the emergency department, thus performing a substantive portion of the medical decision making. Camila Gandhi DO Discharge Plan Disposition Patient Disposition: Home, Self-Care Condition: Good Prescriptions Prescriptions: New cephalexin 500 mg capsule 500 mg PO BID 7 Days Qty: 14 0RF No Action dicyclomine 10 MG capsule 10 mg PO QID cetirizine 10 MG tablet 10 mg PO DAILY Patient Comments: TAKE ONE TABLET BY MOUTH DAILY ibuprofen 800 MG tablet 800 mg PO TID Patient Comments: TAKE 1 TABLET BY MOUTH EVERY 8 HOURS NEEDED FOR PAIN omeprazole 40 MG capsule,delayed release(DR/EC) 40 mg PO DAILY Patient Comments: TAKE 1 CAPSULE BY MOUTH ONCE DAILY albuterol sulfate 18 GM HFA aerosol inhaler 2 puffs IH DAILY Patient Comments: INHALE 2 PUFFS INTO THE LUNGS EVERY 6 HOURS NEEDED FOR WHEEZING budesonide 180 MCG aerosol powdr breath activated 2 puffs IH DAILY Patient Comments: INHALE 1 PUFF INTO THE LUNGS 2 TIMES DAILY levofloxacin 500 mg tablet 500 mg PO DAILY Qty: 7 0RF Referrals Follow up/Referrals: Butch Montano MD [Primary Care Provider] - See instructions Activity Restrictions/Add. Instructions Additional Instructions/Restrictions: Keep wound covered with a clean dry nonocclusive dressing. Return for any increasing pain redness or drainage. Sutures need to come out in 7 days. Clinical Impressions Clinical Impression: Laceration Instructions Patient Instructions: DI for Laceration Repair Print Language Print Language: Indonesian Discharge ED Provider: Camila Gandhi General Adult HPI General Chief complaint: Wound/Laceration Stated complaint: AO 12/25/23 1500 laceration left hand Time Seen by Provider: 12/25/23 15:37 History of Present Illness HPI narrative: Patient presents for a left hand injury. Patient accidentally cut her left hand with a paring knife in the interdigital space between the first and second digit. She has no loss of range of motion no alteration in sensation. Related Data Home Medications ?Medication ?Instructions ?Recorded ?Confirmed albuterol sulfate 90 mcg/actuation 2 puffs IH DAILY COPD 02/07/18 02/11/19 aerosol inhaler budesonide 180 mcg/actuation 2 puffs IH DAILY COPD 02/07/18 02/11/19 breath activated powder inhaler cetirizine 10 mg tablet 10 mg PO DAILY allergy symptoms 02/07/18 02/11/19 ibuprofen 800 mg tablet 800 mg PO TID Pain 02/07/18 02/11/19 omeprazole 40 mg capsule,delayed 40 mg PO DAILY GERD 02/07/18 02/11/19 release dicyclomine 10 mg capsule 10 mg PO QID gut 04/01/18 02/11/19 Previous Rx's ?Medication ?Instructions ?Recorded levofloxacin 500 mg tablet 500 mg PO DAILY #7 tabs 03/03/22 cephalexin 500 mg capsule 500 mg PO BID 7 days #14 caps 12/25/23 Allergies Allergy/AdvReac Type Severity Reaction Status Date / Time Penicillins [PENICILLINS] Allergy Severe I-HIVES Verified 11/06/18 17:31 [facility] Disclaimer: The information contained in this section may have been updated after the patient was seen, as this information can be updated by other users. Social History Smoking Status: Current every day smoker tobacco type: cigarettes packs per day: 1 second hand exposure: Yes alcohol intake: never substance use type: denies use current occupational status: other Travel in the last 8 weeks: None household members: family housing: house caffeine: Yes ROS Obtained: Yes Systems reviewed as appropriate & no additional complaints except as documented Physical Exam General General appearance: alert and in no apparent distress Respiratory Respiratory exam: Present normal lung sounds bilaterally Cardiovascular Cardiovascular exam: Present regular rate and normal rhythm Expanded Upper Extremity Exam Left: Hand L/R front image: 2 1. laceration (1.3 cm) Neurological Exam Neurological exam: Present alert and oriented X3 Medical Decision Making Darrick Inquiry Pt receiving controlled substance: No Vital Signs: 12/25/23 15:32 12/25/23 15:45 12/25/23 16:43 Temperature 97.9 F 98.0 F Temperature Source Oral Pulse Rate 89 78 Pulse Rate [Left Radial] 94 H Respiratory Rate 19 16 Blood Pressure 134/92 H Blood Pressure [Right Arm] 127/88 Blood Pressure Mean [Right Arm] 101 02 Sat by Pulse Oximetry 97 97 Oxygen Delivery Method Room Air Room Air Orders (Tests/Meds): ED MEDICATIONS Discontinued Medications Generic Name Dose Route Start Last Admin Trade Name Freq PRN Reason Stop Dose Admin Cephalexin HCl 500 mg 12/25/23 15:43 12/25/23 15:57 Cephalexin 500mg Capsule PO 12/25/23 15:44 500 mg ONCE ONE Administration Lidocaine HCl 10 ml 12/25/23 15:43 12/25/23 15:51 Lidocaine 1% 10ml Mdv SQ 12/25/23 15:44 10 ml ONCE ONE Administration Tetanus/Reduced Diphtheria/Acell Pertussis 0.5 ml 12/25/23 15:43 12/25/23 15:56 Tet/Diphth/Pert-Adult 0.5ml Syringe IM 12/25/23 15:44 0.5 ml .ONCE ONE Administration ORDERS Category Date Time Status Hand XR left minimum 3 views [XR hand LT min 3V] Stat Exams 12/25/23 15:43 Completed Medical Decision Narrative: In summary patient is a 33-year-old female who presents to the emergency department for evaluation of hand laceration. Patient is hemodynamically upon arrival, afebrile. Physical exam is remarkable for 1.3 cm laceration in the interdigital space between the first and second digit of the right hand. Patient is neurovascularly intact and has full range of motion and sensation.. Differential diagnosis includes simple laceration versus complex versus bony involvement, tendon involvement, ligament involvement. Initial workup will be conducted with plain film x-rays. Initial interventions include Tdap and Keflex. Initial workup reviewed by me and my informal septation of her plain film x-ray shows no acute fracture prior to radiology read. Upon repeat evaluation patient has full range of motion is neurovascularly intact opposition is intact no weakness to flexion extension. Given this patient's laceration was pared primarily with four 4.0 nylon sutures in interrupted fashion. Patient was started on Keflex with first dose given here. Patient to return for any worsening signs or symptoms of redness pain drainage etc. Sutures to stay in for 7 days. Procedures Laceration Laceration 1: Site: hand Side (If applicable): left Size (cm): 1.3 Description: linear Depth: simple, single layer Local Anesthetic: lidocaine 1% Amount of anesthesia used (mL): 5 Pre-repair: wound explored, irrigated extensively and deep structures intact Skin layer closed with: nylon Size (cm): 4-0 Number of sutures: 4 Technique: simple, interrupted Critical Care Critical Care Time Critical Care Time: No
--- NOTE | 2023-12-25 15:43 | XR_ITS ---
FINAL REPORT CLINICAL HISTORY: Knife wound interdigital space L thumb 2nd COMPARISON: None FINDINGS: LEFT HAND: 3 views of the left hand were obtained. There is no acute fracture or dislocation. Visualized joint spaces are normally aligned. There is a small foci of soft tissue air in the interspace between the 1st and 2nd metacarpals which may represent soft tissue injury. There is no evidence of radiopaque foreign body. IMPRESSION: Soft tissue air between the 1st and 2nd metacarpals with no evidence of radiopaque foreign body. Reviewed, Interpreted and Dictated by Horace Gutierrez III, MD Transcribed by Jessica Rose Authenticated and [facility]
[2023-12-25 15:45] VITALS: PULSE 89; O2SAT 97
[2023-12-25] MEDS: LIDOCAINE 1% 10ML MDV 10 ML SQ (15:51)
[2023-12-25] MEDS: TET/DIPHTH/PERT-ADULT 0.5ML SYRINGE 0.5 ML IM (15:56)
[2023-12-25] MEDS: cephALEXin 500MG CAPSULE 500 MG PO (15:57)
[2023-12-25 16:43] VITALS: BP 134/92; PULSE 78; RESP 16; TEMP 36.7; O2SAT 97
== END 2023-12-25 16:44 | disposition home or self-care (01) ==
PROVIDERS: Emergency Provider Emergency Medicine; PCP Family Medicine
DX: S61.412A Laceration without foreign body of left hand, initial encounter (principal); Z23 Encounter for immunization; W26.0XXA Contact with knife, initial encounter
CPT/HCPCS: 12001; 73130; 90471; 90715; 99283

== ENCOUNTER 2024-01-03 23:21 | Emergency (ER) | payer OTHER, SELFPAY ==
[2024-01-03 23:22] VITALS: BP 143/80; PULSE 112; RESP 24; TEMP 37.7; O2SAT 94; BMI 41.5
--- NOTE | 2024-01-03 23:38 | XR_ITS ---
PROCEDURE INFORMATION: Exam: XR Chest Exam date and time: 01/03/2024 11:33 PM Age: 33 years old Clinical indication: Cough and fever; Additional info: Cough, fever, cp TECHNIQUE: Imaging protocol: Radiologic exam of the chest. Views: 2 views. COMPARISON: CT ANGIO CHEST PE PROTOCOL 04/18/2022 4:44 AM FINDINGS: Lungs: There is a dense consolidation in the right lower lobe concerning for pneumonia. Pleural spaces: No large effusion or pneumothorax. Heart/Mediastinum: No evidence of mediastinal widening or cardiac silhouette enlargement; the mediastinum and heart appear within normal limits for contour and size. Bones/joints: No evidence of acute osseous abnormalities within the visualized portions of the thoracic spine and ribs. Osseous structures appear appropriate for patient age. IMPRESSION: There is a dense consolidation in the right lower lobe concerning for pneumonia.
--- NOTE | 2024-01-03 23:40 | HMH.EDGENADL ---
Discharge Plan Disposition Patient Disposition: Home, Self-Care Prescriptions Prescriptions: New levofloxacin 750 mg tablet 750 mg PO DAILY 5 Days Qty: 5 0RF No Action dicyclomine 10 MG capsule 10 mg PO QID cephalexin 500 mg capsule 500 mg PO BID 7 Days Qty: 14 0RF cetirizine 10 MG tablet 10 mg PO DAILY Patient Comments: TAKE ONE TABLET BY MOUTH DAILY ibuprofen 800 MG tablet 800 mg PO TID Patient Comments: TAKE 1 TABLET BY MOUTH EVERY 8 HOURS NEEDED FOR PAIN omeprazole 40 MG capsule,delayed release(DR/EC) 40 mg PO DAILY Patient Comments: TAKE 1 CAPSULE BY MOUTH ONCE DAILY albuterol sulfate 18 GM HFA aerosol inhaler 2 puffs IH DAILY Patient Comments: INHALE 2 PUFFS INTO THE LUNGS EVERY 6 HOURS NEEDED FOR WHEEZING budesonide 180 MCG aerosol powdr breath activated 2 puffs IH DAILY Patient Comments: INHALE 1 PUFF INTO THE LUNGS 2 TIMES DAILY levofloxacin 500 mg tablet 500 mg PO DAILY Qty: 7 0RF Referrals Follow up/Referrals: Butch Montano MD [Primary Care Provider] - See instructions Activity Restrictions/Add. Instructions Additional Instructions/Restrictions: Please follow-up with your primary care provider. Please take antibiotics as prescribed. Please return to the emergency department if you develop any new or worsening symptoms or become concerned for your health. Clinical Impressions Clinical Impression: RLL pneumonia Qualifiers: Pneumonia type: due to unspecified organism Qualified Code(s): J18.9 - Pneumonia, unspecified organism Print Language Print Language: Divehi Discharge ED Provider: Rashid Lux Adult HPI General Chief complaint: Upper Respiratory Infection Stated complaint: fever for two days, weakness Time Seen by Provider: 01/03/24 23:25 Mode of Arrival: Ambulatory Source of Information: Patient Limitations: No Limitations Description of Symptoms (Recalled from ER Triage Doc. by RN): fever cough, sore throat and body aches x 3 days. pt took 800 mg motrin at 2130 tonight History of Present Illness HPI narrative: 33-year-old female without significant past medical history presents for 3 days of fever, body aches, cough, chest pain, sore throat, nasal congestion. She has been taking ibuprofen at home for pain and fever. She reports that her cough is productive of phlegm. Related Data Home Medications ?Medication ?Instructions ?Recorded ?Confirmed albuterol sulfate 90 mcg/actuation 2 puffs IH DAILY COPD 02/07/18 02/11/19 aerosol inhaler budesonide 180 mcg/actuation 2 puffs IH DAILY COPD 02/07/18 02/11/19 breath activated powder inhaler cetirizine 10 mg tablet 10 mg PO DAILY allergy symptoms 02/07/18 02/11/19 ibuprofen 800 mg tablet 800 mg PO TID Pain 02/07/18 02/11/19 omeprazole 40 mg capsule,delayed 40 mg PO DAILY GERD 02/07/18 02/11/19 release dicyclomine 10 mg capsule 10 mg PO QID gut 04/01/18 02/11/19 Previous Rx's ?Medication ?Instructions ?Recorded levofloxacin 500 mg tablet 500 mg PO DAILY #7 tabs 03/03/22 cephalexin 500 mg capsule 500 mg PO BID 7 days #14 caps 12/25/23 levofloxacin 750 mg tablet 750 mg PO DAILY 5 days #5 tabs 01/03/24 Allergies Allergy/AdvReac Type Severity Reaction Status Date / Time Penicillins [PENICILLINS] Allergy Severe I-HIVES Verified 11/06/18 17:31 [facility] Disclaimer: The information contained in this section may have been updated after the patient was seen, as this information can be updated by other users. Social History Smoking Status: Current every day smoker tobacco type: cigarettes packs per day: 1 second hand exposure: Yes alcohol intake: never substance use type: denies use current occupational status: other Travel in the last 8 weeks: None household members: family housing: house caffeine: Yes ROS Obtained: Yes All systems reviewed & no additional complaints except as documented Physical Exam General General appearance: alert and in no apparent distress Head Head exam: atraumatic and normocephalic Eye Eye exam: Present normal appearance, PERRL and EOMI ENT ENT exam: Present normal oropharynx and normal external ear exam Neck Neck exam: Present normal inspection and full ROM Chest Chest inspection: Present normal inspection and symmetric chest wall rise; Absent tenderness Respiratory Respiratory exam: Present other (Right lower lobe crackles); Absent respiratory distress Cardiovascular Cardiovascular exam: Present regular rate and normal rhythm Abdominal Exam Abdominal exam: Present soft; Absent distention, tenderness or guarding Extremities Exam Extremities exam: Present normal inspection; Absent edema or joint swelling Back Exam Back exam: Present normal inspection; Absent tenderness Neurological Exam Neurological exam: Present alert and oriented X3; Absent motor sensory deficit Psychiatric Psychiatric exam: Present normal affect and normal mood Skin Skin exam: Present warm, dry and normal color Lymphatic Lymphatic Findings: no adenopathy Medical Decision Making Medical Records Medical records reviewed: Yes I reviewed the patient's medical records. Darrick Inquiry Pt receiving controlled substance: No Darrick was queried for this patient: No Vital Signs: 01/03/24 23:22 01/04/24 00:11 Temperature 99.9 F H 99.8 F H Temperature Source Oral Pulse Rate 105 H Pulse Rate [Left Radial] 112 H Respiratory Rate 24 20 Blood Pressure 138/79 Blood Pressure [Right Arm] 143/80 H Blood Pressure Mean [Right Arm] 101 02 Sat by Pulse Oximetry 94 L Oxygen Delivery Method Room Air Room Air Lab Data Lab results reviewed: Yes I reviewed the patient's lab results. Orders (Tests/Meds): ED MEDICATIONS Discontinued Medications Generic Name Dose Route Start Last Admin Trade Name Freq PRN Reason Stop Dose Admin Acetaminophen 1,000 mg 01/03/24 23:38 01/03/24 23:53 Acetaminophen 500mg Tab PO 01/03/24 23:39 1,000 mg ONCE ONE Administration Levofloxacin 750 mg 01/03/24 23:49 01/03/24 23:53 Levofloxacin 750 Mg Tablet PO 01/03/24 23:50 750 mg ONCE ONE Administration ORDERS Category Date Time Status CXR 2 view (NOT portable) [XR chest 2V] Stat Exams 01/03/24 23:38 Taken Medical Decision Narrative: 33-year-old female out significant past medical history presents for 3 days of fever, cough chest pain nasal congestion etc.. History was obtained via interactive discussion with patient, chart review. On arrival, patient is [afebrile, hemodynamically stable, satting appropriately, alert, oriented x4, GCS 15], moving all extremities spontaneously. Full physical exam performed and significant for abnormal breath sounds in the right lower lobe. Will evaluate with two-view chest x-ray. Differential includes but is not limited to URI, pneumonia, sinusitis, otitis,. Patient was given Tylenol for symptomatic management and correction of underlying abnormalities. Imaging independently interpreted by me and significant for findings consistent with right lower lobe pneumonia.. See radiology read for full review of final results. Given patient history, exam and workup, patient's presentation most likely represents right lower lobe pneumonia. Patient is alert to penicillins. Will treat with Levaquin, given dose in ED and discharged with prescription for Levaquin x 5 days. Patient instructed follow-up with PCP. Return precautions given. Procedures Risk/Benefits of Procedure(s) Were Explained: Yes Critical Care Critical Care Time Critical Care Time: No
[2024-01-03] MEDS: levoFLOXacin 750 MG TABLET PO (23:53)
[2024-01-03] MEDS: ACETAMINOPHEN 500MG TAB 1000 MG PO (23:53)
[2024-01-04 00:11] VITALS: BP 138/79; PULSE 105; RESP 20; TEMP 37.7; O2SAT 95
== END 2024-01-04 00:12 | disposition home or self-care (01) ==
PROVIDERS: Emergency Provider Emergency Medicine; PCP Family Medicine
DX: J18.9 Pneumonia, unspecified organism (principal); R50.9 Fever, unspecified; R05.9 Cough, unspecified; R07.1 Chest pain on breathing; R09.81 Nasal congestion; F17.210 Nicotine dependence, cigarettes, uncomplicated
CPT/HCPCS: 71046; 99283